=== PATIENT | female | born 1950 | race African-American/Black ===

== ENCOUNTER 2017-01-20 05:45 | Inpatient (IN) | payer MEDICARE, MEDICAID ==
[2017-01-20] VITALS (26 sets, daily range): BP systolic 110–155; BP diastolic 46–92
[~2017-01-20] VITALS: Ht 162.6 cm; Wt 69.5 kg
[~2017-01-20 05:45] MED LIST: ASPI-1159 PO; ATOR10TA69 PO; DOCU-150 PO; GABA-290 PO; HYDR-3280 PO; HYDR25TA PO; LORA10TA7 PO; MECL-109 PO; MELO-106 PO
[2017-01-20] MEDS ORDERED: LACTATED RINGERS 1,000 ML IV SCH (06:15)
[2017-01-20] MEDS ORDERED: GELATIN SPONGE,ABSORBABLE SZ 100 ONE (06:38)
[2017-01-20] MEDS ORDERED: LIDOCAINE HCL 1%/EPI 1:200,000 30 ML VIAL ONE (06:39)
[2017-01-20] MEDS ORDERED: BACITRACIN ZINC 15GM TUBE TOP ONE (06:39)
[2017-01-20] MEDS ORDERED: BACITRACIN 50,000 UNITS/VIAL ONE (06:40)
[2017-01-20] MEDS ORDERED: THROMBIN (BOVINE) 5000 UNITS/VIAL TOP ONE (06:40)
[2017-01-20] MEDS ORDERED: NORMAL SALINE 0.9% 10 ML SYR ONE (06:40)
[2017-01-20] MEDS ORDERED: ATEN-42 PO (06:46)
[2017-01-20] MEDS ORDERED: EPINEPHRINE 0.1MG/ML (1:10,000) 10ML SYR ONE (07:27)
[2017-01-20] MEDS ORDERED: ACETAMINOPHEN 325MG TABLET PO PRN (10:30)
[2017-01-20] MEDS ORDERED: ONDANSETRON HCL 4MG/2ML VIAL IV PRN (10:30)
[2017-01-20] MEDS ORDERED: MORPHINE SULFATE 2 MG/ML CPJ (NOT FOR IM USE) IV PRN (10:30)
[2017-01-20] MEDS ORDERED: DIPHENHYDRAMINE 50MG/ML VIAL IV PRN (10:30)
[2017-01-20] MEDS ORDERED: DIPHENHYDRAMINE INJ IV PRN (11:45)
[2017-01-20] MEDS ORDERED: NALOXONE INJ IV PRN (11:45)
[2017-01-20] MEDS ORDERED: HYDROMORPHONE PCA 10MG/50ML IV PRN (12:00)
[2017-01-20] MEDS: DEXT 5%/LACTATED RINGERS 1,000 ML IV SCH ×2 (12:30→21:48)
[2017-01-20] MEDS: DEXAMETHASONE 4MG/ML 1ML VIAL IV SCH ×3 (12:54→23:44)
[2017-01-20] MEDS ORDERED: NICARDIPINE 100 MG in SODIUM CHLORIDE 0.9% 60 ML IV PRN (13:00)
[2017-01-20] MEDS ORDERED: CEFAZOLIN SODIUM 1000MG/VIAL IV SCH (14:00)
[2017-01-20] MEDS: CEFAZOLIN 1000MG PREMIX 50 ML IV SCH ×2 (17:21→23:44)
[2017-01-20] MEDS: ONDANSETRON INJ IV PRN (20:02)
[2017-01-21] VITALS (35 sets, daily range): BP systolic 116–160; BP diastolic 61–110
[2017-01-21] MEDS: PANTOPRAZOLE SODIUM 40 MG/VIAL IV SCH (01:41)
[2017-01-21] MEDS: DEXAMETHASONE 4MG/ML 1ML VIAL IV SCH (05:52)
[2017-01-21] MEDS: ONDANSETRON INJ IV PRN (05:54)
[2017-01-21] MEDS: DEXT 5%/LACTATED RINGERS 1,000 ML IV SCH ×2 (08:31→18:42)
[2017-01-21] MEDS: CEFAZOLIN 1000MG PREMIX 50 ML IV SCH ×2 (08:31→16:00)
[2017-01-21] MEDS ORDERED: LORAZEPAM 2MG/ML CPJ IV PRN (13:30)
[2017-01-21] MEDS ORDERED: MORPHINE SULFATE 2 MG/ML CPJ (NOT FOR IM USE) IV PRN (14:30)
[2017-01-22] MEDS: PANTOPRAZOLE SODIUM 40 MG/VIAL IV SCH (09:00)
[2017-01-22 09:59] VITALS: BP 133/83
[2017-01-22 12:00] VITALS: BP 126/82
[2017-01-22 12:43] LABS: CHLORIDE 105 mEq/L (98-107)
[2017-01-22 12:49] LABS: CARBON DIOXIDE 31 mEq/L (21-32); PHOSPHORUS 2.9 mg/dL (2.5-4.9)
[2017-01-22 13:02] LABS: BASOPHILS % 0.5 % (0.0-2.0); HEMATOCRIT. 35.9 % (36.0-48.0); HEMOGLOBIN. 12.4 g/dL (12.0-16.0); LYMPHOCYTES % 20.7 % (20.0-50.0); MEAN CORPUSCULAR HEMOGLOBIN 30.2 pg (28.0-32.0); MEAN CORPUSCULAR VOLUME 87.6 fL (81.0-99.0); MEAN PLATELET VOLUME 8.5 fl (7.4-10.4); MONOCYTES % 11.3 % (2.0-8.0); NEUTROPHILS % 65.5 % (40.0-76.0); PLATELET 191 x1000/uL (130-400); RED CELL DISTRIBUTION WIDTH 14.3 % (11.6-14.6)
[2017-01-22 16:00] VITALS: BP 131/78
[2017-01-23 08:14] VITALS: BP 125/72
[2017-01-23] MEDS: PANTOPRAZOLE SODIUM 40 MG/VIAL IV SCH (09:00)
[2017-01-23 12:00] VITALS: BP 126/86
[2017-01-23 12:46] VITALS: BP 126/86
== END 2017-01-23 13:35 | disposition home or self-care (01) | DRG 471 ==
LOC: OR 05:45 → MICUSO 05:55 → MICUNO 01-21 13:30 → 6EST 01-23 11:30
PROVIDERS: ADMIT Neurological Surgery; ATTEND Neurological Surgery
PROC: 0RB30ZZ Excision of Cervical Vertebral Disc, Open Approach (ICD-10-PCS; 2017-01-20)
PROC: 0RG2070 Fusion of 2 or more Cervical Vertebral Joints with Autologous Tissue Substitute, Anterior Approach, Anterior Column, Open Approach (ICD-10-PCS; principal; 2017-01-20 07:00)
DX: M50.022 Cervical disc disorder at C5-C6 level with myelopathy (principal); G82.50 Quadriplegia, unspecified; M47.12 Other spondylosis with myelopathy, cervical region; R13.10 Dysphagia, unspecified; M48.02 Spinal stenosis, cervical region; M50.122 Cervical disc disorder at C5-C6 level with radiculopathy; I10 Essential (primary) hypertension; M25.78 Osteophyte, vertebrae; M47.22 Other spondylosis with radiculopathy, cervical region; M50.123 Cervical disc disorder at C6-C7 level with radiculopathy; M50.023 Cervical disc disorder at C6-C7 level with myelopathy; Z86.73 Personal history of transient ischemic attack (TIA), and cerebral infarction without residual deficits; Z90.710 Acquired absence of both cervix and uterus; Z91.018 Allergy to other foods; Z88.8 Allergy status to other drugs, medicaments and biological substances; Z79.899 Other long term (current) drug therapy
CPT/HCPCS: 36415; 72040; 72141; 80048; 83735; 84100; 85025; 86850; 86900; 88304; 88311; 92523; 92610; 95925; 95926; 95928; 97116; 97163; 97166; A4216; C1713; C9113; J0171; J0690; J1100; J1170; J1200; J2060; J2250; J2370; J2405; J2704; J2710; J3010; J3490; J7120; J7121; L0172

== ENCOUNTER → 2017-07-07 | Day surgery (SDC) | payer MEDICARE, MEDICAID ==
[~2017-07-07] MED LIST changes: -ASPI-1159 PO; +ATEN-42 PO; +LIDOCAINE HCL/PF 1% 10 MG/ML 30ML VIAL ONE; +SODIUM BICARBONATE 4% (2.4MEQ) 5ML VIAL IV ONE
== END | disposition home or self-care (01) ==
LOC: RAD 08:36
PROVIDERS: ATTEND Internal Medicine
DX: R22.2 Localized swelling, mass and lump, trunk (principal); Z79.899 Other long term (current) drug therapy; Z90.710 Acquired absence of both cervix and uterus; Z88.8 Allergy status to other drugs, medicaments and biological substances; Z91.018 Allergy to other foods; I10 Essential (primary) hypertension
CPT/HCPCS: 10022; 88172; 88173; J3490; 76942

== ENCOUNTER → 2022-09-01 | Outpatient (CLI) | payer MEDICARE, MEDICAID ==
[~2022-09-01] MED LIST changes: -HYDR-3280 PO; +HYDR-4350 PO; -LIDOCAINE HCL/PF 1% 10 MG/ML 30ML VIAL ONE; -MECL-109 PO; +MECL-159 PO; -SODIUM BICARBONATE 4% (2.4MEQ) 5ML VIAL IV ONE
== END | disposition home or self-care (01) ==
LOC: MRI 09:51
PROVIDERS: ATTEND Neurological Surgery
DX: M47.816 Spondylosis without myelopathy or radiculopathy, lumbar region (principal); M51.37 Other intervertebral disc degeneration, lumbosacral region; M48.07 Spinal stenosis, lumbosacral region; M48.061 Spinal stenosis, lumbar region without neurogenic claudication; M51.36 Other intervertebral disc degeneration, lumbar region; M54.51 Vertebrogenic low back pain
CPT/HCPCS: 72148